=== PATIENT | female | born 1990 | race Caucasian/White ===

== ENCOUNTER 2020-09-22 09:53 | Outpatient (CLI) | payer OTHER, SELFPAY ==
--- NOTE | ~2020-09-22 | US_ITS ---
EXAMINATION: US thyroid DATE: 09/22/2020 10:16 INDICATION: Thyroid nodule. TECHNIQUE: Multiple ultrasound images of the thyroid were obtained. COMPARISON: None. FINDINGS: The right thyroid lobe measures 4.7 x 1.5 x 1.3 cm. The left thyroid lobe measures 5.8 x 1.1 x 1.5 c m. In the right thyroid lobe, there is a 13 mm solid, hypoechoic, jjbtt-dhmt-beol nodule with ill-de fined margin without echogenic foci (TI-RADS TR4). In the left thyroid lobe, there is a 2.7 cm predom inantly solid, hypoechoic, ebhvi-dsej-aqeh nodule with smooth margin and macrocalcifications (TR3). IMPRESSION: 1. Thyroid nodules. Ultrasound-guided fine-needle aspiration of the left thyroid nodule is recommende d. For the right thyroid nodule, consider thyroid ultrasound in one year. Reviewed, dictated and finalized at location A. [facility] IMPRESSION: 1. Thyroid nodules. Ultrasound-guided fine-needle aspiration of the left thyroi d nodule is recommended. For the right thyroid nodule, consider thyroid ultraso und in one year.
== END 2020-09-22 09:54 | disposition home or self-care (01) ==
PROVIDERS: PCP Family Medicine; Visit Provider Physician Assistant
DX: E04.1 Nontoxic single thyroid nodule (principal)
CPT/HCPCS: 76536

== ENCOUNTER 2020-11-29 19:28 | Emergency (ER) | payer OTHER, SELFPAY ==
[2020-11-29 19:35] VITALS: BP 146/89; PULSE 88; RESP 18; TEMP 36.9; O2SAT 99
--- NOTE | 2020-11-29 19:42 | ED.DENTAL ---
HPI - Dental/Oral General Chief complaint: Dental/Oral Stated complaint: Mouth infection Time Seen by Provider: 11/29/20 19:42 Source: patient Mode of arrival: ambulatory Limitations: no limitations History of Present Illness HPI Narrative: 30-year-old woman comes in today complaining of 6 days of left lower molar pain. Patient states that part of her tooth cracked off and she has had increased pain. Four days ago her doctor prescribed some amoxicillin which has made her sick and has not helped her symptoms. She is having increasing swelling around her tooth. She denies difficulty swallowing, difficulty breathing, or fever. MD Complaint: tooth pain Onset (ago): day(s) (6) Duration: constant Severity: severe Relieving factors: nothing Exacerbating factors: chewing Associated symptoms: gum swelling and ear pain Treatment prior to arrival: oral analgesic Related Data Home Medications Medication Instructions Recorded Confirmed amoxicillin-pot clavulanate 1 tablet PO BID 11/29/20 11/29/20 Allergies Allergy/AdvReac Type Severity Reaction Status Date / Time ibuprofen Allergy Unknown Verified 11/29/20 19:44 naproxen AdvReac Unknown Verified 11/29/20 19:44 Review of Systems Constitutional: Constitutional: Denies chills and Denies fever(s) ENT: Denies dysphagia, Denies nasal congestion and Denies sore throat Integumentary/Breasts: Skin/Breast: Denies pruritus, Denies erythema and Denies rash Hematologic/Lymphatic: Hematologic/Lymphatic: Denies easy bleeding and Denies easy bruising Allergic/Immunologic: Allergic/Immunologic: Denies lip swelling and Denies throat swelling PMFSH Past Medical History Medical History (Updated 11/29/20 @ 19:59 by Adelso Reza MD) History of ureteral obstruction Surgical History Surgical History (Updated 11/29/20 @ 19:54 by Adelso Reza MD) S/P ureteral stent placement Social History Social History Smoking status: Never smoker Alcohol intake: never Living arrangements: with family Exam Const: General: healthy appearing and alert Orientation/consciousness: patient oriented x3 Limitations: no limitations Other: [id number] acute distress. HENMT: Head: normal to inspection Ears: external ears normal, TM's normal bilaterally and EAC's normal General nose exam: Normal nares present Face and sinus: normal facial exam Mouth: Yes moist mucous membranes Throat: posterior oropharynx normal Other: Left 3rd lower molar has gross decay, gingival bleeding and swelling, and tenderness. Eyes: Conjunctivae: conjunctivae normal Pupils: Equal, round and reactive pupils present EOM: EOMs intact bilaterally Neck: Neck: normal visual inspection and no lymphadenopathy Other: Mild submandibular tenderness at the angle without mass or swelling Resp: Effort & Inspection: normal respiratory effort and not labored Auscultation: clear to auscultation bilaterally, no rales, no rhonchi and no wheezes Cardio: Rate: regular rate Rhythm: regular rhythm Heart sounds: no murmurs Skin: General skin exam: normal color, no jaundice and no pallor Rashes: no rashes Neuro: General: patient oriented x3, moves all extremities, no focal motor deficits and CN's II-XI intact bilaterally Speech: normal speech Gait exam (Neuro): Normal gait present Extrem: General: normal to inspection and no clubbing, cyanosis or edema Psych: Appearance: grossly normal and well kempt Mental Status: mental status grossly normal Affect: normal affect Attitude: cooperative Thought content: Yes Normal thought content present Discharge Plan Discharge Clinical Impression: Dental abscess Patient Disposition: Home, Self-Care Condition: Stable Instructions: Antibiotic Form, Dental Abscess (ED) Additional Instructions: If you have difficulty swallowing, difficulty breathing, or new concerning symptoms, return to the emergency
[2020-11-29 20:03] VITALS: BP 138/80; PULSE 85; RESP 20; O2SAT 100
[2020-11-29] MEDS: CLINDAMYCIN HCL 150 MG CAP 300 MG PO (20:14)
== END 2020-11-29 20:18 | disposition home or self-care (01) ==
PROVIDERS: Emergency Provider Emergency Medicine
DX: K04.7 Periapical abscess without sinus (principal)
CPT/HCPCS: 99283; A9270

== ENCOUNTER 2021-01-15 10:21 | Outpatient (CLI) | payer OTHER, SELFPAY ==
--- NOTE | ~2021-01-15 | US_ITS ---
EXAMINATION: US FNA w image guidance DATE: 01/15/2021 12:14 INDICATION: Left thyroid nodule. TECHNIQUE: The procedure and its benefits and risks were discussed with the patient. Risks specifically discusse d included bleeding. The patient verbalized understanding of the risks and agreed to proceed. The nec k was prepped and draped in the usual sterile manner. 1% lidocaine was used for local anesthesia. 5 passes were made with a 25G needle into the lesion under ultrasound guidance. There were no immedia te complications. The patient understood to call the ordering physician for results after a week and a half and verbalized that understanding. FINDINGS: Grayscale ultrasound images demonstrate needles advanced into a 2.7 cm nodule in left thyroid lobe fo r biopsy. IMPRESSION: 1. Ultrasound-guided fine needle aspiration of a left thyroid nodule. Reviewed, dictated and finalized at location A.
== END 2021-01-15 10:22 | disposition home or self-care (01) ==
PROVIDERS: PCP Physician Assistant; Visit Provider Otolaryngology
DX: E04.1 Nontoxic single thyroid nodule (principal)
CPT/HCPCS: 10005; 88173; 88305

== ENCOUNTER 2022-06-14 17:08 | Outpatient (CLI) | payer OTHER, SELFPAY ==
--- NOTE | ~2022-06-14 | XR_ITS ---
EXAMINATION: XR hip RT min 2V DATE: 06/14/2022 17:57 INDICATION: Right hip pain TECHNIQUE: Anteroposterior and frog-leg lateral views of the right hip were obtained. COMPARISON: None. FINDINGS: Alignment is normal. No fracture or suspected avascular necrosis. Borderline decreased femoral head n avis junction offset with alpha angle of 60 degrees. Right hip joint space is normal. IMPRESSION: 1. Borderline decreased right femoral head neck offset which could predispose towards cam-type femora l acetabular impingement. No other osseous abnormality. Reviewed, dictated and finalized at location A. IMPRESSION: 1. Borderline decreased right femoral head neck offset which could predispose t owards cam-type femoral acetabular impingement. No other osseous abnormality.
--- NOTE | ~2022-06-14 | XR_ITS ---
EXAMINATION: XR lumbar spine 2-3V DATE: 06/14/2022 17:56 INDICATION: Lumbar radiculopathy TECHNIQUE: Anteroposterior and lateral views of the lumbar spine, and cone-down lateral view of the l umbosacral junction were obtained. COMPARISON: None. FINDINGS: Alignment is normal. Vertebral body and disc heights are normal. Mild osteoarthritis at the bilateral L5-S1 and left L4-L5 facet joints. Bilateral sacroiliac joints are normal. Sacral arches are intact. Cholecystectomy clips in right upper quadrant. IMPRESSION: 1. Mild lower lumbar facet osteoarthritis. Reviewed, dictated and finalized at location A.
== END 2022-06-14 17:09 | disposition home or self-care (01) ==
LOC: CHSIMG 17:11
PROVIDERS: PCP Family Medicine; Visit Provider Physician Assistant
DX: M54.16 Radiculopathy, lumbar region (principal); M25.551 Pain in right hip
CPT/HCPCS: 72100; 73502

== ENCOUNTER 2022-06-27 10:02 | Emergency (ER) | payer OTHER, SELFPAY ==
[2022-06-27 10:10] VITALS: BP 125/92; PULSE 71; RESP 16; TEMP 36.4; O2SAT 100
[2022-06-27 10:11] VITALS: BP 125/92; PULSE 71; RESP 16; TEMP 36.4; O2SAT 99
[2022-06-27] MEDS: KETOROLAC (*BKC) 60 MG/2 ML VIAL IM (10:34)
--- NOTE | 2022-06-27 10:43 | ED.EXTPRO ---
HPI - Extremity Problem General Chief complaint: Extremity Problem,Nontraumatic Stated complaint: right hip pain Time Seen by Provider: 06/27/22 10:06 Source: patient and RN notes reviewed Mode of arrival: ambulatory Limitations: no limitations History of Present Illness HPI Narrative: ongoing right low back to buttock to right lower limb pain x 6 mos. worse x this AM, with no acute injury. on steroids + vicodins for right sciatica per PMD. MD Complaint: extremity pain Onset (ago): month(s) (6) Pain Consistency: intermittent Location: right and lower extremity Severity scale (1-10): 8 Quality: aching and dull Radiation: distal Relieving factors: medication and rest Exacerbating factors: weight bearing and walking Related Data Allergies Allergy/AdvReac Type Severity Reaction Status Date / Time ibuprofen Allergy Unknown Verified 12/29/20 10:01 Penicillins Allergy Unknown Verified 06/27/22 10:18 naproxen AdvReac Unknown Verified 12/29/20 10:01 Review of Systems Review of Systems: All systems reviewed & are unremarkable except as noted in HPI and below Constitutional: Constitutional: Reports no additional constitutional complaints Eyes: Eyes: Reports no additional eye complaints ENT: Reports system reviewed and no additional complaints, except as documented Cardiovascular: Cardiovascular: Reports no additional cardiovascular complaints Respiratory: Respiratory: Reports no additional respiratory complaints Gastrointestinal: Gastrointestinal: Reports no additional gastrointestinal complaints Genitourinary: Genitourinary: Reports no additional female genitourinary complaints Musculoskeletal: Musculoskeletal: Reports no additional musculoskeletal complaints, Reports back pain and Reports arthralgias Comments: known right sciatica Integumentary/Breasts: Skin/Breast: Reports system reviewed and no additional complaints, except as docu Neurologic: Reports system reviewed and no additional complaints, except as documented Psychiatric: Psychiatric: Reports no additional psychiatric complaints Endocrine: Endocrine: Reports no additional endocrine complaints Hematologic/Lymphatic: Hematologic/Lymphatic: Reports no additional hematologic/lymphatic complaints Allergic/Immunologic: Allergic/Immunologic: Reports no additional allergic/immunologic complaints [facility] Past Medical History Medical History History of ureteral obstruction Right sided sciatica Surgical History Surgical History S/P ureteral stent placement Social History Social History Smoking status: Never smoker Alcohol intake: never Substance use: never Substance use type: does not use Exam Const: General: healthy appearing, no acute distress and well nourished Nutritional Appearance: well nourished Orientation/consciousness: patient oriented x3 Limitations: no limitations HENMT: Head: normal to inspection Ears: external ears normal, TM's normal bilaterally and EAC's normal Face/Nose/Sinus: Normal external nose present, Normal nares present, normal facial exam and sinuses nontender Face and sinus: normal facial exam and sinuses nontender Mouth: Yes Normal oral and palatal mucosa present and Yes moist mucous membranes Teeth and gingiva: dentition normal Throat: posterior oropharynx normal Eyes: Conjunctivae: conjunctivae normal Pupils: Equal, round and reactive pupils present EOM: EOMs intact bilaterally Neck: Neck: normal visual inspection, no lymphadenopathy and no meningeal signs Chest: Chest palpation & inspection: normal inspection of the chest Resp: Effort & Inspection: normal respiratory effort Auscultation: clear to auscultation bilaterally Cardio: Rate: regular rate Rhythm: regular rhythm GI: GI Palp: Yes Soft to palpation and No Tenderness to palpatio
[2022-06-27 10:56] VITALS: BP 125/92; PULSE 71; RESP 16; TEMP 36.4; O2SAT 99
== END 2022-06-27 10:57 | disposition home or self-care (01) ==
PROVIDERS: Emergency Provider Emergency Medicine; PCP Family Medicine
DX: M54.31 Sciatica, right side (principal)
CPT/HCPCS: 96372; 99283; J1885

== ENCOUNTER 2022-06-29 07:12 | Outpatient (CLI) | payer OTHER, SELFPAY ==
--- NOTE | ~2022-06-29 | MR_ITS ---
EXAMINATION: MR lumbar spine wo con DATE: 06/29/2022 08:59 INDICATION: Right lumbar radiculopathy with right hip pain TECHNIQUE: Magnetic resonance imaging (MRI) of the lumbar spine was performed without intravenous con trast. Sequences included sagittal T2-weighted FSE, sagittal T2-weighted FS FSE, sagittal T1-weighted FSE, and axial T2-weighted FSE. COMPARISON: None FINDINGS: Alignment is normal. Vertebral body heights are normal. Normal marrow signal. Disc desiccation with mild disc height loss at L5-S1 and minimal disc height loss at L4-L5. The conus medullaris terminates at L2. There is normal signal in the caudal spinal cord. Paravertebral soft tissues are unremarkable . The following disc levels are specifically discussed: T12-L1: The disc does not extend beyond the endplate margin. There is mild bilateral facet joint oste oarthritis. There is no neural foraminal stenosis. There is no central canal stenosis. L1-L2: Disc is mildly bulging. There is mild bilateral facet joint osteoarthritis. There is no neural foraminal stenosis. There is no central canal stenosis. L2-L3: Disc is minimally bulging. There is mild bilateral facet joint osteoarthritis. There is no stanislaw ral foraminal stenosis. There is no central canal stenosis. L3-L4: Disc is minimally bulging. There is mild bilateral facet joint osteoarthritis. There is no stanislaw ral foraminal stenosis. There is no central canal stenosis. L4-L5: Mild diffuse disc bulge with superimposed central disc protrusion. There is mild bilateral fac et joint osteoarthritis. There is mild bilateral neural foraminal stenosis. There is mild central can al stenosis and mild narrowing of the lateral recesses, left greater than right. L5-S1: Disc is mildly bulging with annular fissure and right paracentral disc protrusion which modera tely narrows the right lateral recesses and exerts mass effect upon the traversing right S1 nerve nallely t. There is mild bilateral facet joint osteoarthritis. There is mild bilateral neural foraminal steno sis. There is mild central canal stenosis with mild narrowing of the left lateral recess. IMPRESSION: 1. Mild lower lumbar predominant spondylosis most notable for and L5-S1 annular fissure and right par acentral disc protrusion which narrows the right lateral recesses exerting mass effect upon the trave rsing right S1 nerve root. Correlate clinically for left-sided muscle weakness of plantar flexion, se nsory change of the lateral foot and small toe, and depressed ankle reflex. Reviewed, dictated and finalized at location B. IMPRESSION: 1. Mild lower lumbar predominant spondylosis most notable for and L5-S1 annular fissure and right paracentral disc protrusion which narrows the right lateral recesses exerting mass effect upon the traversing right S1 nerve root. Correlat e clinically for left-sided muscle weakness of plantar flexion, sensory change of the lateral foot and small toe, and depressed ankle reflex.
--- NOTE | ~2022-06-29 | MR_ITS ---
EXAMINATION: MR hip RT wo con DATE: 06/29/2022 08:58 INDICATION: Right hip pain TECHNIQUE: Magnetic resonance imaging (MRI) of the right hip was performed without intravenous contr ast. Sequences included full-field axial PD-weighted FS FSE and T1-weighted FSE, small field of view of the right hip with axial PD-weighted FS FSE, sagittal PD-weighted FS FSE and coronal PD weighted FS FSE. COMPARISON: None FINDINGS: Bones/labrum/cartilage: Alignment is normal. No fracture, avascular necrosis or pathologic marrow replacing process. Labrum is normal. Articular cartilage is normal. Lower lumbar spondylosis. See separate lumbar spine MRI for further detail. Fluid: Symmetric physiologic amount of fluid within both hip joints. Soft tissues: Normal and symmetric muscle bulk and signal in the pelvis and visualized proximal thighs. The iliopso as, gluteal and proximal hamstring tendons are normal. Limited evaluation of visceral organs of the p kacie is unremarkable. No pathologically enlarged pelvic/inguinal lymphadenopathy. IMPRESSION: 1. Normal right hip. 2. Lower lumbar spondylosis. See separate lumbar spine MRI for further detail. Reviewed, dictated and finalized at location B.
== END 2022-06-29 07:13 | disposition home or self-care (01) ==
LOC: CHSIMG 07:15
PROVIDERS: PCP Family Medicine; Visit Provider Physician Assistant
DX: M25.551 Pain in right hip (principal); M54.16 Radiculopathy, lumbar region
CPT/HCPCS: 72148; 73721

== ENCOUNTER 2022-06-29 08:16 | Emergency (ER) | payer OTHER, SELFPAY ==
[2022-06-29 08:18] VITALS: BP 120/80; PULSE 80; RESP 16; TEMP 36.6; O2SAT 97
[2022-06-29 08:25] VITALS: BP 120/80; PULSE 85; RESP 16; TEMP 36.5; O2SAT 97
--- NOTE | 2022-06-29 08:55 | ED.LOWEXIN ---
HPI - Extremity Injury (Lower) General Chief Complaint: Extremity Injury, Lower Stated Complaint: HIP PAIN Time Seen by Provider: 06/29/22 08:20 Source: patient, family and RN notes reviewed Mode of arrival: ambulatory Limitations: no limitations History of Present Illness HPI Narrative: right hip pain x 6 weeks. MRI done today, requesting pain meds. complaint: other (sciatic pain, right) Onset (ago): week(s) (6) Injury: Right: hip Type of Injury: other (none.) Severity: moderate Severity scale (1-10): 7 Relieving factors: nothing Exacerbating factors: weight bearing and movement Other symptoms: none Related Data Home Medications Medication Instructions Recorded Confirmed hydrocodone 5 mg-acetaminophen 325 1 tablet PO PRN PRN Pain 06/29/22 06/29/22 mg tablet medroxyprogesterone 150 mg/mL 150 mg IM USEASDIRECTD 06/29/22 06/29/22 intramuscular suspension prednisone 20 mg tablet 20 mg PO DAILY 06/29/22 06/29/22 Allergies Allergy/AdvReac Type Severity Reaction Status Date / Time ibuprofen Allergy Unknown Verified 06/29/22 08:26 Penicillins Allergy Unknown Verified 06/29/22 08:26 naproxen AdvReac Unknown Verified 06/29/22 08:26 Review of Systems Review of Systems: All systems reviewed & are unremarkable except as noted in HPI and below Constitutional: Constitutional: Reports no additional constitutional complaints Eyes: Eyes: Reports no additional eye complaints ENT: Reports system reviewed and no additional complaints, except as documented Cardiovascular: Cardiovascular: Reports no additional cardiovascular complaints Respiratory: Respiratory: Reports no additional respiratory complaints Gastrointestinal: Gastrointestinal: Reports no additional gastrointestinal complaints Genitourinary: Genitourinary: Reports no additional female genitourinary complaints Musculoskeletal: Musculoskeletal: Reports back pain and Reports arthralgias Integumentary/Breasts: Skin/Breast: Reports system reviewed and no additional complaints, except as docu Neurologic: Reports system reviewed and no additional complaints, except as documented Psychiatric: Psychiatric: Reports no additional psychiatric complaints Endocrine: Endocrine: Reports no additional endocrine complaints Hematologic/Lymphatic: Hematologic/Lymphatic: Reports no additional hematologic/lymphatic complaints Allergic/Immunologic: Allergic/Immunologic: Reports no additional allergic/immunologic complaints PMFSH Past Medical History Medical History History of ureteral obstruction Right sided sciatica Surgical History Surgical History S/P ureteral stent placement Social History Social History Smoking status: Never smoker Alcohol intake: never Substance use: never Substance use type: does not use Exam Const: General: no acute distress and well nourished Nutritional Appearance: well nourished Orientation/consciousness: patient oriented x3 Limitations: no limitations HENMT: Head: normal to inspection Ears: external ears normal, TM's normal bilaterally and EAC's normal Face/Nose/Sinus: Normal external nose present, Normal nares present, normal facial exam and sinuses nontender Face and sinus: normal facial exam and sinuses nontender Mouth: Yes Normal oral and palatal mucosa present and Yes moist mucous membranes Teeth and gingiva: dentition normal Throat: posterior oropharynx normal Eyes: Conjunctivae: conjunctivae normal Pupils: Equal, round and reactive pupils present EOM: EOMs intact bilaterally Neck: Neck: normal visual inspection, no lymphadenopathy and no meningeal signs Chest: Chest palpation & inspection: normal inspection of the chest Resp: Effort & Inspection: normal respiratory effort Auscultation: clear to auscultation bilaterally Cardio:
[2022-06-29] MEDS: ONDANSETRON HCL ODT 4 MG TABLET PO (09:03)
[2022-06-29] MEDS: MORPHINE SULFATE (*CRX) 4 MG/ML INJ IM (09:05)
--- NOTE | 2022-06-29 09:09 | PC.NURSE ---
PT IS PACING IN EXAM ROOM AT THIS TIME EATING GOLD FISH WITHOUT DISTRESS. SIG OTHER TO TRANSPORT.
[2022-06-29 09:25] VITALS: BP 116/70; PULSE 62; RESP 16; O2SAT 98
== END 2022-06-29 09:25 | disposition home or self-care (01) ==
PROVIDERS: Emergency Provider Emergency Medicine; PCP Physician Assistant
DX: M54.31 Sciatica, right side (principal)
CPT/HCPCS: 72148; 73721; 96372; 99283; A9270; J2270

== ENCOUNTER 2023-05-31 15:00 | Outpatient (CLI) | payer OTHER, SELFPAY ==
--- NOTE | ~2023-05-31 | US_ITS ---
EXAMINATION: US pelvic complete w TV DATE: 05/31/2023 15:42 INDICATION: Pelvic pain Comparison:No prior studies for comparison. TECHNIQUE: Multiple transabdominal and endovaginal sonographic images of the pelvis performed. FINDINGS: The uterus measures 9.6 x 5.4 x 4 cm. There is an IUD present in the endometrium. The endom etrial complex measures 7 mm. The right ovary measures 3.2 x 2.7 2.1 cm. The left ovary is nonvisualized. There is normal Doppler s ignal in the right ovary. In the left adnexa there is a focal echogenic area measuring 2.7 cm with po sterior shadowing, possibly calcification. Consider correlation with CT. There is free fluid in the pelvis. There are no abnormal masses seen on either side. IMPRESSION: 1. Focal echogenic mass measuring 2.7 cm in the left adnexa with posterior shadowing, possibly a calc ified mass. Consider correlation with CT. Reviewed, dictated and finalized at location L. IMPRESSION: 1. Focal echogenic mass measuring 2.7 cm in the left adnexa with posterior shad owing, possibly a calcified mass. Consider correlation with CT.
== END 2023-05-31 15:01 | disposition home or self-care (01) ==
LOC: CHSIMG 15:02
PROVIDERS: PCP Physician Assistant; Visit Provider Family Medicine
DX: R10.2 Pelvic and perineal pain (principal); R19.09 Other intra-abdominal and pelvic swelling, mass and lump
CPT/HCPCS: 76830; 76856

== ENCOUNTER 2023-06-03 08:31 | Outpatient (CLI) | payer OTHER, SELFPAY ==
--- NOTE | ~2023-06-03 | CT_ITS ---
EXAMINATION: CT abdomen pelvis w con DATE: 06/03/2023 09:04 INDICATION: Pelvic pain TECHNIQUE: Computed tomography (CT) of the abdomen and pelvis was performed with 100 cc Omnipaque 350 intravenous contrast. The dose-length product was 437.39 mGy-cm. Automated exposure control and iter ative reconstruction technique were employed. COMPARISON: None. FINDINGS: Lung bases are unremarkable. Heart size normal. No significant pleural or pericardial effus ion. Status post cholecystectomy. There is expected prominence of the bile ducts. The spleen is enlar ged. There the pancreas, adrenal glands and kidneys are unremarkable. Nonobstructive bowel gas patter n. Small amount of free fluid in the pelvis. There is a 3.1 cm left adnexal cyst. There is a retroaor tic left renal vein. No free air. No significant vascular abnormality. No lymphadenopathy. There is a n IUD in the pelvis. IMPRESSION: 1. Left adnexal cyst measuring 3.1 cm, likely ovarian. Small mineral free fluid in the pelvis. Reviewed, dictated and finalized at location B.
== END 2023-06-03 08:32 | disposition home or self-care (01) ==
LOC: CHSIMG 08:34
PROVIDERS: PCP Physician Assistant; Visit Provider Family Medicine
DX: R10.2 Pelvic and perineal pain (principal); N83.8 Other noninflammatory disorders of ovary, fallopian tube and broad ligament
CPT/HCPCS: 74177; Q9967

== ENCOUNTER 2024-04-03 10:56 | Outpatient (CLI) | payer OTHER, SELFPAY ==
--- NOTE | ~2024-04-03 | CT_ITS ---
CT abdomen pelvis wo con Ordering provider: Jessenia Gutierrez, History: 33 years Female with . Hydronephrosis . Comparison: None. Technique: CT abdomen and pelvis with IV and without oral contrast. Automated exposure control and it erative reconstruction technique were employed. The dose-length product was 452.69 mGy-cm. Findings: VISUALIZED LOWER CHEST: Normal. UPPER ABDOMINAL ORGANS: Liver: Normal. Gallbladder: Status post cholecystectomy. Spleen: Normal. Stomach/duodenum: Normal. Pancreas: Normal. Adrenals: Normal. Kidneys: No definite stones. No definite hydronephrotic changes. PELVIC ORGANS: The bladder is normal. Uterus: Normal. Slightly enlarged left ovary measuring 3.4 x 3 .1 cm. Cyst is highly suggestive on the left side measuring 2.6 cm.. BOWEL AND MESENTERY: Colon: Mild sigmoid diverticulosis without diverticulitis. Normal appendix. Minimal fat stranding in the area of the appendix with lymph nodes are noted with the largest measures 0.9 CNM.. Small Bowel: Normal. No obstruction. Peritoneum/mesentery: No free air. Minimal free fluid is seen in the pelvis. No mesenteric lymphadeno troy. RETROPERITONEUM: Normal aorta. No retroperitoneal lymphadenopathy. MUSCULOSKELETAL: Superficial soft tissues: The superficial soft tissues are normal. Bones: Normal spine. IMPRESSION: 1. No evidence of obstruction or diverticulitis. No renal stones or hydronephrotic changes. 2. Slightly enlarged left ovary with a cyst. 3. Minimal fluid in the pelvis. 4. Minimal fat stranding around the appendix with lymph nodes. No definite thickening in the wall of the appendix with air seen inside the appendix. Clinical correlation for appendicitis and follow-up is advised. Reviewed, dictated and finalized at location A. IMPRESSION: 1. No evidence of obstruction or diverticulitis. No renal stones or hydronephr otic changes. 2. Slightly enlarged left ovary with a cyst. 3. Minimal fluid in the pelvis. 4. Minimal fat stranding around the appendix with lymph nodes. No definite thi ckening in the wall of the appendix with air seen inside the appendix. Clinical correlation for appendicitis and follow-up is advised.
== END 2024-04-03 10:57 | disposition home or self-care (01) ==
LOC: CHSIMG 10:59
PROVIDERS: PCP Physician Assistant; Visit Provider Family Medicine
DX: N13.30 Unspecified hydronephrosis (principal); N83.202 Unspecified ovarian cyst, left side
CPT/HCPCS: 74176

== ENCOUNTER 2024-04-10 14:13 | Outpatient (CLI) | payer OTHER, SELFPAY ==
--- NOTE | ~2024-04-10 | US_ITS ---
US pelvic complete w TV Ordering provider: Jessenia Gutierrez, History: . Left Ovarian Cyst . Comparison: None. Technique: Transabdominal and endovaginal ultrasound of the pelvis (Doppler ultrasound interrogation techniques used as needed for this exam.) FINDINGS: CERVIX: Minimal fluid seen. UTERUS: Measures 8.6x 6.3x 5.1 cm in length which is within normal limits and is anteverted. No myom etrial masses. ENDOMETRIUM: Normal in thickness measuring 4.6 mm. (Note: the premenopausal endometrium may measure u p to 16 mm when in the secretory phase.) No endometrial masses, cysts or fluid. CUL DE SAC: No free fluid. RIGHT OVARY: Normal in size measuring 2.6x 2.3x 1.6 cm. Normal echotexture. Doppler vascular flow pre sent. LEFT OVARY: Normal in size measuring 3.7x 2.6x 1.9 cm. Normal echotexture. Doppler vascular flow pres ent. Small follicles. ADNEXA: Normal. No mass. IMPRESSION: Minimal fluid in the cervix. Otherwise, normal pelvic ultrasound. Reviewed, dictated and finalized at location A.
== END 2024-04-10 14:14 | disposition home or self-care (01) ==
PROVIDERS: PCP Physician Assistant; Visit Provider Family Medicine
DX: N83.202 Unspecified ovarian cyst, left side (principal)
CPT/HCPCS: 76830; 76856